=== PATIENT | male | born 1995 | race Two or more races ===

== ENCOUNTER 2022-09-13 11:26 | Inpatient (IN) | payer MEDICARE, MEDICAID ==
[~2022-09-13] VITALS: Ht 162.6 cm; Wt 68.2 kg
[2022-09-13 12:06] LABS: Basophils # (auto) 0 10 ^3/uL (0-0.2); Eosinophils # (auto) 0.2 10 ^3/uL (0-0.8); Hemoglobin 7.5 g/dL (13.5-17.5); Mean Corpuscular Hgb Conc. 34.3 g/dL (32.0-36.0); Monocytes # (auto) 0.6 10 ^3/uL (0-1.3); Red Cell Distribution Width 15.8 % (11.8-14.3)
[2022-09-13 12:08] LABS: Basophils % (auto) 0.5 % (0.0-2.0); Eosinophils % (auto) 2.5 % (0.0-7.0); Hematocrit 21.8 % (41.0-53.0); Lymphocytes # (auto) 1.3 10 ^3/uL (0.4-5.4); Mean Corpuscular Hemoglobin 30.8 pg (28.0-32.0); Mean Corpuscular Volume 89.9 fL (80.0-100.0); Monocytes % (auto) 8.7 % (0.0-12.0); Neutrophils # (auto) 4.9 10 ^3/uL (1.6-8.6); Neutrophils % (auto) 70.3 % (37.0-80.0); Red Blood Cells 2.42 10^6/uL (4.5-5.90)
[2022-09-13] MEDS ORDERED: NITROGLYCERIN 0.4 MG SL TAB SL ONE (12:15)
[2022-09-13 13:22] LABS: Alanine Aminotransferase 13 U/L (16-61); Albumin 3.1 g/dL (3.4-5.0); Alkaline Phosphatase 77 U/L (45-117); Anion Gap 16 (5-15); Aspartate Aminotransferase < 3 U/L (15-37); Bilirubin, Total 0.3 mg/dL (0.2-1.0); Calcium 8.7 mg/dL (8.5-10.1); Carbon Dioxide 28 mmol/L (21-32); Chloride 94 mmol/L (98-107); GFR Non-African American 3 mL/min; Glucose 119 mg/dL (74-106); Potassium 4.9 mmol/L (3.5-5.1); Sodium 138 mmol/L (136-145); Total Protein 5.8 g/dL (6.4-8.2)
[2022-09-13 13:24] LABS: BUN/Creatinine Ratio 4.8 (10.0-20.0); GFR African American 3 mL/min
[2022-09-13 13:27] LABS: Blood Urea Nitrogen 105 mg/dL (7-18)
[2022-09-13] MEDS ORDERED: ASPirin 325 MG TAB PO ONE (15:30)
[2022-09-13] MEDS ORDERED: ACETAMINOPHEN 325 MG TAB PO PRN (15:30)
[2022-09-13] MEDS ORDERED: MORPHINE SULFATE INJ 2 MG/ml SYRG IV PRN ×2 (15:30)
[2022-09-13] MEDS ORDERED: NITROGLYCERIN 0.4 MG SL TAB SL PRN (15:30)
[2022-09-13] MEDS ORDERED: hydrALAZINE HCL 20 MG/ML VL IV PRN (15:30)
[2022-09-13] MEDS ORDERED: NITROGLYCERIN 0.4MG/HR TOPICAL PATCH TD ONE (15:30)
[2022-09-13] MEDS ORDERED: PANTOPRAZOLE 40 MG/10 ML VIAL INJ IV ONE (16:00)
[2022-09-13 16:13] LABS: Cholesterol 112 mg/dL (< 200); HDL Cholesterol 58 mg/dL (40-59); LDL Cholesterol 54 mg/dL (< 100); Triglycerides 51 mg/dL (< 150)
[2022-09-13] MEDS ORDERED: ENOXAPARIN SOD 80 MG/0.8ML SYRINGE SC ONE (16:15)
[2022-09-13] MEDS: PERITONEAL DIALYSIS 2.5% SOLN 2,000 ML IP SCH (20:09)
[2022-09-13] MEDS: ATORVASTATIN 20 MG TAB PO SCH (21:59)
[2022-09-14] MEDS: PERITONEAL DIALYSIS 2.5% SOLN 2,000 ML IP SCH ×2 (00:20→06:06)
[2022-09-14] MEDS ORDERED: CALC667C PO (00:57)
[2022-09-14] MEDS ORDERED: LISI10TA34 PO (00:57)
[2022-09-14] MEDS ORDERED: AMLO1TAB22 PO (00:57)
[2022-09-14] MEDS ORDERED: CARV6.2551 PO (00:57)
[2022-09-14] MEDS: HYDROcodone-ACET 5/325MG TAB PO PRN ×2 (04:18→14:10)
[2022-09-14 05:00] VITALS: BP 131/96
[2022-09-14 06:00] LABS: Albumin 3.2 g/dL (3.4-5.0); Anion Gap 19 (5-15); Calcium 8.8 mg/dL (8.5-10.1); Carbon Dioxide 28 mmol/L (21-32); Chloride 92 mmol/L (98-107); Glucose 140 mg/dL (74-106); Potassium 4.5 mmol/L (3.5-5.1); Sodium 139 mmol/L (136-145)
[2022-09-14 06:12] LABS: Alanine Aminotransferase 15 U/L (16-61); Alkaline Phosphatase 76 U/L (45-117); Aspartate Aminotransferase < 3 U/L (15-37); BUN/Creatinine Ratio 4.5 (10.0-20.0); Bilirubin, Total 0.4 mg/dL (0.2-1.0); GFR African American 3 mL/min; GFR Non-African American 3 mL/min; Total Protein 6.1 g/dL (6.4-8.2)
[2022-09-14 06:35] LABS: Blood Urea Nitrogen 105 mg/dL (7-18)
[2022-09-14 07:09] LABS: Basophils # (auto) 0 10 ^3/uL (0-0.2); Eosinophils # (auto) 0.1 10 ^3/uL (0-0.8); Lymphocytes # (auto) 0.8 10 ^3/uL (0.4-5.4)
[2022-09-14 07:11] LABS: Basophils % (auto) 0.3 % (0.0-2.0); Eosinophils % (auto) 0.9 % (0.0-7.0); Hematocrit 22.3 % (41.0-53.0); Hemoglobin 7.6 g/dL (13.5-17.5); Lymphocytes % (auto) 10.1 % (10.0-50.0); Mean Corpuscular Hemoglobin 31.5 pg (28.0-32.0); Mean Corpuscular Volume 92.7 fL (80.0-100.0); Monocytes # (auto) 0.7 10 ^3/uL (0-1.3); Monocytes % (auto) 9.2 % (0.0-12.0); Neutrophils # (auto) 6.4 10 ^3/uL (1.6-8.6); Neutrophils % (auto) 79.5 % (37.0-80.0); Red Cell Distribution Width 15.6 % (11.8-14.3); White Blood Cell 8.1 10^3/uL (4.4-10.8)
[2022-09-14 08:53] LABS: INR 0.99 (0.9-1.15)
[2022-09-14 09:00] VITALS: BP 132/95
[2022-09-14] MEDS: PANTOPRAZOLE 40 MG/10 ML VIAL INJ IV SCH (09:34)
[2022-09-14] MEDS: ASPirin 81 mg TAB PO SCH (09:34)
[2022-09-14 10:15] LABS: Urine Bacteria NONE SEEN /hpf (None Seen); Urine Blood Negative /uL (Negative); Urine WBC 4 /hpf (0 - 3)
[2022-09-14 10:30] LABS: Alcohol, Urine < 3.0 mg/dL (0-10); Amphetamine Screen, Urine NEGATIVE (NEGATIVE); Barbiturate Scree,Urine NEGATIVE (NEGATIVE); Benzodiazephine Screen, Urine NEGATIVE (NEGATIVE); Cannabinoid Screen, Urine NEGATIVE (NEGATIVE); Cocaine Screen, Urine POSITIVE (NEGATIVE); Opiate Scree,Urine NEGATIVE (NEGATIVE); Phencyclidine Screen, Urine NEGATIVE (NEGATIVE)
[2022-09-14] MEDS ORDERED: CARVEDILOL 3.125 MG TAB PO ONE (11:15)
[2022-09-14] MEDS ORDERED: amLODIPine BESYLATE 5 MG TAB PO ONE (11:15)
[2022-09-14] MEDS: CALCIUM ACETATE 667 MG CAP PO SCH ×2 (12:12→18:02)
[2022-09-14 13:00] VITALS: BP 135/95
[2022-09-14 16:42] VITALS: BP 113/69
[2022-09-14] MEDS: ATORVASTATIN 20 MG TAB PO SCH (19:57)
[2022-09-14] MEDS: CARVEDILOL 3.125 MG TAB PO SCH (21:22)
[2022-09-14 22:00] VITALS: BP 137/86
[2022-09-15] VITALS (9 sets, daily range): BP systolic 116–149; BP diastolic 79–108
[2022-09-15] MEDS: PERITONEAL DIALYSIS 2.5% SOLN 2,000 ML IP SCH ×5 (00:50→17:56)
[2022-09-15 06:28] LABS: INR 0.99 (0.9-1.15); Partial Thromboplastin Time 28.5 sec (24.6-33.4)
[2022-09-15 06:34] LABS: Potassium 4.7 mmol/L (3.5-5.1)
[2022-09-15 06:36] LABS: Basophils # (auto) 0 10 ^3/uL (0-0.2); Basophils % (auto) 0.4 % (0.0-2.0); Eosinophils # (auto) 0.2 10 ^3/uL (0-0.8); Hematocrit 21.7 % (41.0-53.0); Lymphocytes # (auto) 1.2 10 ^3/uL (0.4-5.4); Monocytes # (auto) 0.6 10 ^3/uL (0-1.3); Neutrophils # (auto) 4.2 10 ^3/uL (1.6-8.6); White Blood Cell 6.2 10^3/uL (4.4-10.8)
[2022-09-15 06:38] LABS: Eosinophils % (auto) 2.6 % (0.0-7.0); Hemoglobin 7.4 g/dL (13.5-17.5); Lymphocytes % (auto) 19.5 % (10.0-50.0); Mean Corpuscular Hemoglobin 30.9 pg (28.0-32.0); Mean Corpuscular Hgb Conc. 34.3 g/dL (32.0-36.0); Monocytes % (auto) 9.6 % (0.0-12.0); Neutrophils % (auto) 67.9 % (37.0-80.0); Red Blood Cells 2.41 10^6/uL (4.5-5.90); Red Cell Distribution Width 15.4 % (11.8-14.3)
[2022-09-15 06:44] LABS: BUN/Creatinine Ratio 4.4 (10.0-20.0)
[2022-09-15] MEDS: CALCIUM ACETATE 667 MG CAP PO SCH ×3 (08:00→17:55)
[2022-09-15] MEDS: ASPirin 81 mg TAB PO SCH (10:17)
[2022-09-15] MEDS: amLODIPine BESYLATE 5 MG TAB PO SCH (10:18)
[2022-09-15] MEDS: PANTOPRAZOLE 40 MG/10 ML VIAL INJ IV SCH (10:19)
[2022-09-15] MEDS: CARVEDILOL 3.125 MG TAB PO SCH ×2 (10:19→22:28)
[2022-09-15] MEDS ORDERED: ANGIOMAX 250 MG VIAL IV ONE (16:03)
[2022-09-15] MEDS ORDERED: MIDAZOLAM HCL 2MG/2ML 2ml VIAL (1mg/ml) ONE (16:03)
[2022-09-15] MEDS ORDERED: LIDOCAINE 2%HCL (LOCAL ANESTH.) INJ 20ML MDV ONE (16:03)
[2022-09-15] MEDS ORDERED: SODIUM CHL 0.9% 0 ML ONE (16:03)
[2022-09-15] MEDS ORDERED: fentaNYL CITRATE 100 MCG/2 ML VL ONE (16:03)
[2022-09-15] MEDS ORDERED: IOHEXOL 350 MG/ML 500ML BOTTLE IJ ONE (16:04)
[2022-09-15] MEDS ORDERED: VERAPAMIL 2.5MG/ML INJ 2ML VIAL IV ONE (16:06)
[2022-09-15] MEDS ORDERED: HEPARIN SODIUM (PORCINE) 5000 UNITS/ML 1ML VIAL ONE (16:06)
[2022-09-15] MEDS: HYDROcodone-ACET 5/325MG TAB PO PRN (18:49)
[2022-09-15] MEDS: ATORVASTATIN 20 MG TAB PO SCH (22:25)
[2022-09-16] MEDS: PERITONEAL DIALYSIS 2.5% SOLN 2,000 ML IP SCH ×3 (00:37→12:00)
[2022-09-16 05:00] VITALS: BP 140/81
[2022-09-16 06:33] LABS: Basophils # (auto) 0 10 ^3/uL (0-0.2); Eosinophils # (auto) 0.1 10 ^3/uL (0-0.8); Hemoglobin 7.5 g/dL (13.5-17.5); Lymphocytes # (auto) 0.9 10 ^3/uL (0.4-5.4); Mean Corpuscular Volume 89.7 fL (80.0-100.0); Monocytes # (auto) 0.7 10 ^3/uL (0-1.3)
[2022-09-16 06:35] LABS: Basophils % (auto) 0.3 % (0.0-2.0); Eosinophils % (auto) 1.3 % (0.0-7.0); Hematocrit 21.5 % (41.0-53.0); Lymphocytes % (auto) 15.2 % (10.0-50.0); Mean Corpuscular Hemoglobin 31.3 pg (28.0-32.0); Mean Corpuscular Hgb Conc. 34.9 g/dL (32.0-36.0); Monocytes % (auto) 12.7 % (0.0-12.0); Neutrophils % (auto) 70.5 % (37.0-80.0); Nucleated Red Blood Cells % 0.1 %; Red Cell Distribution Width 15.3 % (11.8-14.3); White Blood Cell 5.7 10^3/uL (4.4-10.8)
[2022-09-16 06:40] LABS: Calcium 9.3 mg/dL (8.5-10.1); Potassium 4.6 mmol/L (3.5-5.1)
[2022-09-16 06:48] LABS: BUN/Creatinine Ratio 4.2 (10.0-20.0)
[2022-09-16 09:00] VITALS: BP 143/97
[2022-09-16] MEDS: CALCIUM ACETATE 667 MG CAP PO SCH ×2 (09:01→12:00)
[2022-09-16] MEDS: ASPirin 81 mg TAB PO SCH (09:01)
[2022-09-16] MEDS: PANTOPRAZOLE 40 MG/10 ML VIAL INJ IV SCH (09:01)
[2022-09-16] MEDS: amLODIPine BESYLATE 5 MG TAB PO SCH (09:02)
[2022-09-16] MEDS: CARVEDILOL 3.125 MG TAB PO SCH (09:02)
[2022-09-16 11:56] VITALS: BP 143/97
== END 2022-09-16 12:49 | disposition home or self-care (01) | DRG 280 ==
LOC: EDBD 11:26 → ER 11:26 → TELE 15:29 → TELE-WESTW 22:20
PROVIDERS: ADMIT Registered Nurse; ATTEND Internal Medicine
PROC: B2111ZZ Fluoroscopy of Multiple Coronary Arteries using Low Osmolar Contrast (ICD-10-PCS; principal; 2022-09-15)
DX: I21.4 Non-ST elevation (NSTEMI) myocardial infarction (principal); N18.6 End stage renal disease; I12.0 Hypertensive chronic kidney disease with stage 5 chronic kidney disease or end stage renal disease; E78.5 Hyperlipidemia, unspecified; E21.3 Hyperparathyroidism, unspecified; D63.1 Anemia in chronic kidney disease; I25.119 Atherosclerotic heart disease of native coronary artery with unspecified angina pectoris; Z99.2 Dependence on renal dialysis; Z84.1 Family history of disorders of kidney and ureter
CPT/HCPCS: 36415; 71045; 80048; 80053; 80061; 80307; 81001; 83036; 84443; 84484; 85025; 85610; 85730; 86850; 86900; 86901; 87081; 93005; 93306; 93454; 96372; 96374; 96375; 99152; 99291; C9113; G0378; J2250